=== PATIENT | male | born 1945 | race Caucasian/White ===

== ENCOUNTER 2018-07-26 22:07 | Emergency (ER) | payer SELFPAY ==
[~2018-07-26] VITALS: Ht 149.9 cm; Wt 60.3 kg
[2018-07-26 23:10] VITALS: BP 145/79
== END 2018-07-26 23:44 | disposition home or self-care (01) ==
LOC: ED 22:07
DX: S90.512A Abrasion, left ankle, initial encounter (principal); L02.413 Cutaneous abscess of right upper limb; Z98.890 Other specified postprocedural states; W22.03XA Walked into furniture, initial encounter; Y93.89 Activity, other specified; Y92.89 Other specified places as the place of occurrence of the external cause; Y99.9 Unspecified external cause status
CPT/HCPCS: 90715; J2001

== ENCOUNTER 2018-07-29 09:47 | Emergency (ER) | payer SELFPAY ==
[~2018-07-29] VITALS: Ht 154.9 cm; Wt 59.9 kg
[2018-07-29 09:52] VITALS: Ht 154.9 cm; Wt 59.9 kg
[2018-07-29 10:55] VITALS: BP 150/74
== END 2018-07-29 10:55 | disposition home or self-care (01) ==
LOC: ED 09:47
DX: L02.511 Cutaneous abscess of right hand (principal); E11.9 Type 2 diabetes mellitus without complications; Z98.890 Other specified postprocedural states